=== PATIENT | female | born 1965 | race Caucasian/White ===

== ENCOUNTER → 2018-04-17 | Outpatient (CLI) | payer OTHER | END | disposition home or self-care (01) | LOC: MAMMO 15:25 | DX: Z12.31 Encounter for screening mammogram for malignant neoplasm of breast (principal) | CPT/HCPCS: 77063; 77067 ==

== ENCOUNTER → 2018-12-11 | Outpatient (CLI) | payer OTHER ==
--- NOTE | 2018-12-11 17:30 | RAD ---
2 view study of the cervical spine Clinical indications: Neck pain. Status post fusion in 2010. COMPARISON: None available. FINDINGS: Anterior cervical fusion is seen at C3 and C4 and C5 with normal alignment and no anterolisthesis. No discitis or lytic process is evident. No acute fracture or prevertebral soft tissue swelling is evident. There is mild degenerative endplate spurring at C5-6 and C6-7. Dextroscoliosis of the cervical spine is seen. IMPRESSION: Anterior cervical fusion at C3- thru C5. Normal alignment. No acute osseous abnormality is evident. Electronically signed by: Herber Fung MD (12/11/2018 5:26 PM) [facility]
== END | disposition home or self-care (01) ==
LOC: RAD 15:19
PROVIDERS: ATTEND Neurological Surgery
DX: M41.82 Other forms of scoliosis, cervical region (principal); Z98.890 Other specified postprocedural states
CPT/HCPCS: 72040

== ENCOUNTER 2019-02-10 15:47 | Emergency (ER) | payer OTHER ==
[~2019-02-10] VITALS: Ht 154.9 cm; Wt 71.2 kg
--- NOTE | 2019-02-10 16:29 | PHYS DOC ---
Past Medical History Past Medical History: Pneumonia Past Surgical History: Hysterectomy, Other Additional Past Surgical Histo: ACDF SURG,HERNIA Alcohol Use: None Drug Use: None Adult General Chief Complaint Chief Complaint: Congestion HPI HPI Patient is a 53 year old female who presents to the ED today to be evaluated for cough, patient states she was diagnosed with influenza A on Saturday last week at urgent care. She states she has been coughing since then, she states she went back yesterday and was reevaluated. She states they could not find any acute cause for her cough other than the influenza. She presents today stating she is still coughing she states she is about to go on vacation to [place] on Saturday this week and would like to make sure she is well. Patient denies any fever. Review of Systems Review of Systems Constitutional: Denies fever or chills [] Eyes: Denies change in visual acuity, redness, or eye pain [] HENT: Denies nasal congestion or sore throat [] Respiratory: reports cough denies shortness of breath [] Cardiovascular: No additional information not addressed in HPI [] GI: Denies abdominal pain, nausea, vomiting, bloody stools or diarrhea [] : Denies dysuria or hematuria [] Musculoskeletal: Denies back pain or joint pain [] Integument: Denies rash or skin lesions [] Neurologic: Denies headache, focal weakness or sensory changes [] All other systems were reviewed and found to be within normal limits, except as documented in this note. Allergies Allergies Allergies Coded Allergies Type Severity Reaction Last Updated Verified No Known Drug Allergies 02/10/19 No Physical Exam Physical Exam Constitutional: Well developed, well nourished, no acute distress, non-toxic appearance. [] HENT: Normocephalic, atraumatic, bilateral external ears normal, oropharynx moist, no oral exudates, nose normal. [] Eyes: PERRLA, EOMI, conjunctiva normal, no discharge. [] Neck: Normal range of motion, no tenderness, supple, no stridor. [] Cardiovascular:Heart rate regular rhythm, no murmur [] Lungs & Thorax: Bilateral breath sounds clear to auscultation [] Abdomen: Bowel sounds normal, soft, no tenderness, no masses, no pulsatile masses. [] Skin: Warm, dry, no erythema, no rash. [] Back: No tenderness, no CVA tenderness. [] Extremities: No tenderness, no cyanosis, no clubbing, ROM intact, no edema. [] Neurologic: Alert and oriented X 3, normal motor function, normal sensory function, no focal deficits noted. [] Psychologic: Affect normal, judgement normal, mood normal. [] Current Patient Data Vital Signs Vital Signs Date Time Temp Pulse Resp B/P (MAP) Pulse Ox O2 Delivery O2 Flow Rate FiO2 02/10/19 15:50 98.3 102 20 136/88 (104) 98 Room Air 98.3 EKG EKG [] Radiology/Procedures Radiology/Procedures [] Course & Med Decision Making Course & Med Decision Making Pertinent Labs and Imaging studies reviewed. (See chart for details) This is a 53-year-old female patient presenting to the ED today to be evaluated for cough, she was diagnosed with influenza A on Saturday. Chest x-ray is negative for any acute findings E read patient was discharged to home. Follow- up with PCP in 1-2 weeks. Dragon Disclaimer Dragon Disclaimer This electronic medical record was generated, in whole or in part, using a voice recognition dictation system. Departure Departure Impression: Primary Impression: Cough Disposition: HOME, SELF-CARE Condition: STABLE Referrals: JEREMIAH RAMIREZ MD (PCP) follow up in one week Patient Instructions: Cough, Adult, [id number] Additional Instructions: You were evaluated in the emergency room your chest x-ray is negative for pneumonia. You can take [id number] cough and cold medications as needed. Follow-up with your doctor in 1-2 weeks. SUHA STEPHEN APRN Feb 10, 2019 16:29
--- NOTE | 2019-02-10 16:53 | RAD ---
PROCEDURE: CHEST PA LATERAL CLINICAL INDICATION: ER PATIENT. NON PRODUCTIVE COUGH, CONGESTION, ATRAUMATIC UPPER CHEST PAIN. Hx RECENT PNEUMONIA. PRIOR XRAY. COMPARISON: None FINDINGS: No pneumothorax identified. Cardiac and mediastinal contours unremarkable. No pulmonary consolidation or acute airspace disease. No acute osseous abnormalities identified. IMPRESSION: No pulmonary consolidation or acute airspace disease. Electronically signed by: Howie Cabrera DO (02/10/2019 4:50 PM) [facility]
[2019-02-10 17:13] VITALS: BP 120/78
[2019-04-06] MEDS ORDERED: cbd oil (14:48)
== END 2019-02-10 17:13 | disposition home or self-care (01) ==
LOC: ER 15:47
DX: R05 Cough (principal); R09.81 Nasal congestion; Z90.710 Acquired absence of both cervix and uterus
CPT/HCPCS: 71046; 99283; 99284-25

== ENCOUNTER → 2019-03-09 | Outpatient (CLI) | payer OTHER ==
[2019-02-10 17:13] VITALS: BP 120/78
[~2019-03-09] MED LIST: cbd oil
--- NOTE | 2019-03-09 16:28 | RAD ---
MRI Cervical Spine Without Contrast History: Left cervical radiculopathy, previous cervical fusion, uncontrolled tremors Technique: Multiplanar, multi sequential noncontrast MR imaging was performed of the cervical spine. Comparison: Cervical spine radiographs December 11, 2018 Findings: There is motion degradation, limits accurate characterization of the neural foramina especially on the axial images. As seen previously, there has been anterior cervical fusion C3, C4, C5. There are interbody grafts C3-4 and C4-5 although interbody fusion not apparent. Cervical vertebral body stature is overall maintained. There is likely mild degenerative disc disease C5-6, mild C5-6 endplate edema likely reactive/degenerative in etiology. There is also mild degenerative disc disease C6-C7. There is moderate to severe dextroscoliosis of the cervical spine. C2-C3: There is severe left facet degenerative change. Spinal canal and right neural foramen are adequate, probable minimal narrowing of the left neural foramen. C3-C4: There is severe left facet degenerative change. There are minimal posterior osteophytes. Spinal canal is overall adequate. Right neural foramen is adequate. There is likely left uncovertebral degenerative change. There is likely [id number] narrowing of the left neural foramen. C4-C5: There is bilateral facet degenerative change. Central canal is adequate about 11 to 12 mm, mild indentation upon the ventral thecal sac in the far right lateral recess by osteophytes. Neural foramina are not significantly narrowed. C5-C6: There is posterior disc osteophyte complex. There is buckling of the ligamentum flavum. Probable narrowing of the central canal about 7 mm, poorly characterized due to motion. There is uncovertebral and facet degenerative change. Right neural foramen is likely adequate, likely moderate to severe narrowing of the left neural foramen. C6-C7: There is minimal disc osteophyte complex. Central canal is minimally narrowed to about 9 mm. There is facet degenerative change greater on the left. There is degree of uncovertebral degenerative change. Neural foramina are poorly characterized, likely fairly severe left and at least mild right neural foramina compromise. C7-T1: Spinal canal is adequate. There is probable uncovertebral degenerative change bilaterally. There is probable moderate to severe left and at least moderate right neural foramina compromise. Impression: 1. Exam is degraded by motion, limits accurate characterization of the neural foramina. 2. There has been anterior cervical fusion C3, C4, C5 although interbody fusion not apparent on this exam. 3. There is mild degenerative disc disease C5-6 and C6-7. 4. There is spinal stenosis about 7 mm at C5-6, lesser degree of mild spinal stenosis about 9 mm at C6-7. 5. Accurate evaluation of the neural foramina is limited as described, suspected neural foramina compromise due to facet and uncovertebral degenerative change most notable left greater than right at C7-T1, on the left at C6-7 and C5-6, to lesser degree on the left at C3-C4. 6. There is cervical dextroscoliosis. Electronically signed by: Tesfaye Sterling MD (03/09/2019 4:24 PM) [facility]
== END | disposition home or self-care (01) ==
LOC: MRI 15:05
PROVIDERS: ATTEND Neurological Surgery
DX: M50.123 Cervical disc disorder at C6-C7 level with radiculopathy (principal); M48.02 Spinal stenosis, cervical region; M47.22 Other spondylosis with radiculopathy, cervical region; M41.82 Other forms of scoliosis, cervical region; M47.814 Spondylosis without myelopathy or radiculopathy, thoracic region; M25.78 Osteophyte, vertebrae
CPT/HCPCS: 72141

== ENCOUNTER → 2019-04-06 | Outpatient (CLI) | payer OTHER ==
[~2019-04-06] MED LIST changes: +IOHEXOL 180 MG/ML 10 ML VIAL. ONE; +methylPREDNISolone ACETATE 40 MG/ML VIAL. ONE; +methylPREDNISolone ACETATE 80 MG/ML VIAL. ONE
--- NOTE | 2019-04-07 02:23 | PAIN ---
DATE OF SERVICE: 04/06/2019 INITIAL CONSULTATION FOR PAIN CLINIC CHIEF COMPLAINT: Neck and left upper extremity pain. HISTORY OF PRESENT ILLNESS: This is a 53-year-old female who presents with history of pain in the base of neck and left shoulder and arm about November of this year. The patient reports it returned, came on gradually, not a result of any specific injury or action that she is aware of, has been getting worse over time. She has had cervical diskectomy and fusion in 2010, which was successful and did very well with the pain, but over the past few months, the pain is returning, base of the neck, left shoulder, left arm, into the biceps and forearm at times, but mostly in the shoulder and the base of the neck. The patient reports it is becoming more constant, is aching and is radiating into the left arm with some numbness in the base of the neck as well. The patient reports no gross motor loss in the left extremity, but significant fatigability with using her left arm for any repetitive motion, lifting items, even driving the car, raising her hand above her head on the left side and any weightbearing on the left arm. The patient reports she is taking gabapentin as well as CBD oil, which she does feel both of these helped to a moderate extent, maybe 30-40%. The patient had not had any former recent physical therapy. She has had some in the past and doing some stretching and exercise on her own, but is not decreasing the pain significantly. The patient reports it awakens her from sleep very rarely, but do not affect her bowel or bladder control or ability to walk. The patient reports her disability rating from 0-10, 10 being the worst is a 0 with family and home responsibilities, 1 with recreation and occupational activities, 5 with social activity, 2 with sexual behavior, and 5 with life support activities. The patient did have MRI scan of the cervical spine showing postoperative changes, anterior fusion from C3-C5 and C5-C6 shows moderately severe narrowing of left neural foramen with neural foraminal narrowing on the left at C6-C7 and mild spinal stenosis at C5-C6. The patient reports no loss of function, but significant fatigability of the shoulder and the left upper extremity with any repetitive motion. PAST MEDICAL HISTORY: Significant for arthritis. PREVIOUS SURGERIES: Include hysterectomy in 2009, anterior cervical diskectomy and fusion in 2010 and hernia repair, inguinal on the left in 1998. CURRENT MEDICATIONS: Include just CBD oil. No prescription medications at this time. ALLERGIES: The patient has no known drug allergies. FAMILY HISTORY: Significant for hypertension and heart disease. SOCIAL HISTORY: The patient does not smoke, drinks alcohol about 2 drinks a week on average. Does not use any illegal, illicit or recreational drugs. She is single, lives locally in [place], [place] and works as the brewery technician. REVIEW OF SYSTEMS: The patient's review of systems is positive for those items mentioned in history of present illness. All systems reviewed and otherwise negative. It is complete, full and well documented on the patient's chart. PHYSICAL EXAMINATION: VITAL SIGNS: The patient's blood pressure is 117/80, pulse 69, respirations 18, temperature 98.0 degrees Fahrenheit, height is 5 feet 2 inches, weight is 157 pounds. GENERAL: The patient is awake, alert, oriented, appropriate, very pleasant demeanor. HEENT: Shows normocephalic, atraumatic. Extraocular movements are intact and symmetrical. Oral cavity: Mucous membranes moist and pink. Dentition is intact. NECK: Shows anterior throat supple without palpable lymphadenopathy noted. Swallow reflex symmetrical. CHEST: Shows normal on inspection. Breath sounds are clear to auscultation bilaterally. HEART: Shows S1, S2 clear. No murmurs auscultated. ABDOMEN: Soft, nontender, nondistended. No palpable organomegaly is noted. No rebound or guarding demonstrated. BACK: Shows spine grossly in the midline. Normal appearing thoracic kyphosis and lumbar lordotic curvature and cervical lordotic curvature is slightly flattened. Cervical paraspinous muscle shows symmetrical on inspection. On palpation shows some moderate tenderness diffusely, but only diffusely without significant radiation. The patient has good rotational motion of cervical spine, both laterally as well as extension and flexion without significant increase in pain. EXTREMITIES: The patient shows upper extremity deep tendon reflexes 2+ in the biceps and triceps tendons. Motor exam is strong with java lead engineer strength rated at 5/5. Bicep and tricep flexion approximately 4 on a scale of 5 on the left, with 5/5 on the right. Peripheral pulses are 2+ radial distribution. No peripheral edema is noted bilaterally. Shoulder shrug is strong and intact without loss of strength on resistance as is abduction of shoulder to 90 degrees, some minor pain on the left side, but only with resistance without loss of strength. SKIN: Shows warm and dry, good turgor. No edema. No sores, rashes or bruising throughout. IMPRESSION: This is a 53-year-old female with: 1. Approximate 4-month history of increasing pain, base of the neck, left shoulder, into the left upper extremity in a radicular fashion. 2. MRI scan of cervical spine as noted. 3. Arthritis. PLAN: Options were discussed with the patient including conservative medical management, physical therapy, interventional techniques. She likes to pursue interventional techniques. We discussed a cervical epidural steroid injection using description as well as anatomical models to describe the procedure. Risks were discussed including, but not limited to bleeding, infection, possibility of epidural hematoma, subsequent neurologic compromise, dural puncture, headaches, spinal cord and/or nerve damage, side effects of steroid medication and poor results regarding pain control. The patient understands and wished to proceed. The patient will return to the clinic in approximately 2 weeks for followup, was counseled on return appointment, activity level and side effects to be aware of. DIAGNOSES: Cervical radiculopathy with cervical degenerative disk disease and cervical post-laminectomy syndrome. PROCEDURE: Cervical epidural steroid injection, translaminar approach C7-T1 level using C-arm fluoroscopic guidance under sterile prep and drape using local anesthetic. MEDICATION INJECTED: A total of 120 mg Depo-Medrol plus 5 mL of preservative-free normal saline, 2 mL of Isovue for contrast. CONDITION AT DISCHARGE: Stable. The patient tolerated the procedure well, had no complications. JIMMY ARREDONDO MD DR: DAVID/ernesto JOB#: [id number] / [id number] JEREMIAH Almeida MD
== END | disposition home or self-care (01) ==
LOC: PNCL 14:10
PROVIDERS: ATTEND Anesthesiology
DX: M50.13 Cervical disc disorder with radiculopathy, cervicothoracic region (principal); M96.1 Postlaminectomy syndrome, not elsewhere classified; M19.90 Unspecified osteoarthritis, unspecified site; Z90.710 Acquired absence of both cervix and uterus; Z98.890 Other specified postprocedural states; Z98.1 Arthrodesis status; Z79.899 Other long term (current) drug therapy; Z72.89 Other problems related to lifestyle; Z82.49 Family history of ischemic heart disease and other diseases of the circulatory system
CPT/HCPCS: 62321; J1030; J1040; Q9965

== ENCOUNTER 2019-07-14 14:36 | Emergency (ER) | payer OTHER ==
[~2019-07-14] VITALS: Ht 154.9 cm; Wt 68.0 kg
[~2019-07-14 14:36] MED LIST changes: -IOHEXOL 180 MG/ML 10 ML VIAL. ONE; -methylPREDNISolone ACETATE 40 MG/ML VIAL. ONE; -methylPREDNISolone ACETATE 80 MG/ML VIAL. ONE
[2019-07-14] MEDS ORDERED: KETOROLAC 60 MG/2 ML VIAL. IM ONE (15:30)
--- NOTE | 2019-07-14 15:48 | RAD ---
PQRS Compliance statement: One or more of the following individualized dose reduction techniques were utilized for this examination: 1. Automated exposure control. 2. Adjustment of the mA and/or kV according to patient size. 3. Use of iterative reconstruction technique. Indication:Left groin pain. TECHNIQUE: CT abdomen and pelvis without IV contrast with multiplanar reformats. COMPARISON: None FINDINGS: Limited evaluation of solid abdominal and pelvic organs due to lack of IV contrast. Heart is normal in size. No pericardial or pleural effusion. Clear lung bases. Noncontrast appearance of the liver, spleen, gallbladder, pancreas, adrenals and kidneys within normal limits. No enlarged retroperitoneal or pelvic adenopathy. No free pelvic fluid or ascites. No bowel obstruction. Normal appendix. Urinary bladder demonstrates no radiopaque stones. Status post hysterectomy. No pneumoperitoneum. No suspicious bony lesion. Very small fat-containing right inguinal hernia. IMPRESSION: Limited evaluation of solid abdominal and pelvic organs due to lack of IV contrast. No acute findings. Very small fat-containing right inguinal hernia. Electronically signed by: Howie Cabrera DO (07/14/2019 3:45 PM) [facility]
[2019-07-14 16:12] LABS: BILIRUBIN,URINE NEGATIVE (NEG); CLARITY,URINE CLEAR; COLOR,URINE YELLOW; NITRITE,URINE NEGATIVE (NEG); PROTEIN,URINE NEGATIVE (NEG-TRACE); UROBILINOGEN,URINE 0.2 mg/dL (0.2 mg/dL)
[2019-07-14 16:29] LABS: BACTERIA,URINE FEW /HPF (0-FEW); RBC,URINE OCC /HPF (0-2); YEAST,URINE PRESENT /HPF
[2019-07-14] MEDS ORDERED: CYCL10TA2 PO (16:52)
[2019-07-14] MEDS ORDERED: TRAM-48 PO (16:52)
--- NOTE | 2019-07-14 16:52 | PHYS DOC ---
Past Medical History Past Medical History: Pneumonia Additional Past Medical Histor: CHRONIC NECK AND BACK PAIN Past Surgical History: Hysterectomy, Other Additional Past Surgical Histo: ACDF SURG,HERNIA Alcohol Use: None Drug Use: None Adult General Chief Complaint Chief Complaint: GROIN PAIN [facility] HPI Patient is a 54 year old female who presents with complaining of left groin pain. Patient states she had inguinal hernia surgery 1998 and complaining of left groin pain for the last 1 week as can be intermittent sharp pain without relation to activity. Patient denies back drinking groin area, abdominal pain, nausea and vomiting, fever and chills, urinary symptom. Patient states she did take ibuprofen with mild improvement of her pain. Patient also complaining of chronic neck and back pain since 2010 after had neck surgery. Review of Systems Review of Systems Constitutional: Denies fever or chills [] Eyes: Denies change in visual acuity, redness, or eye pain [] HENT: Denies nasal congestion or sore throat [] Respiratory: Denies cough or shortness of breath [] Cardiovascular: No additional information not addressed in HPI [] GI: Denies abdominal pain, nausea, vomiting, bloody stools or diarrhea [] : Denies dysuria or hematuria [] Musculoskeletal: Reports chronic neck pain Integument: Denies rash or skin lesions [] Neurologic: Denies headache, focal weakness or sensory changes [] Endocrine: Denies polyuria or polydipsia [] All other systems were reviewed and found to be within normal limits, except as documented in this note. Current Medications Current Medications Current Medications Medications (Trade) Dose Ordered Sig/Shauna Start Time Stop Time Status Last Admin Dose Admin Ketorolac Tromethamine (Toradol Im) 60 mg 1X ONCE 07/14/19 15:30 07/14/19 15:31 DC 07/14/19 15:30 60 MG Allergies Allergies Allergies Coded Allergies Type Severity Reaction Last Updated Verified No Known Drug Allergies 02/10/19 No Physical Exam Physical Exam Constitutional: Well developed, well nourished, mild distress, non-toxic appearance. [] HENT: Normocephalic, atraumatic. Eyes: PERRLA, EOMI, conjunctiva normal, no discharge. [] Neck: Normal range of motion, no tenderness, supple, no stridor. [] Cardiovascular:Heart rate regular rhythm, no murmur [] Lungs & Thorax: Bilateral breath sounds clear to auscultation [] Abdomen: Bowel sounds normal, soft, no tenderness, no masses, no pulsatile masses. [No inguinal hernia in the left side. Skin: Warm, dry, no erythema, no rash. [] Back: No tenderness, no CVA tenderness. [] Extremities: No tenderness, no cyanosis, no clubbing, ROM intact, no edema. [] Neurologic: Alert and oriented X 3, no focal deficits noted. [] Psychologic: Affect normal, judgement normal, mood normal. [] Current Patient Data Vital Signs Vital Signs Date Time Temp Pulse Resp B/P (MAP) Pulse Ox O2 Delivery O2 Flow Rate FiO2 07/14/19 17:05 66 16 156/81 (106) 98 Room Air 07/14/19 14:56 98.2 98.2 Lab Values Laboratory Tests Test 07/14/19 15:11 Urine Color Yellow Urine Clarity Clear Urine pH 6.0 Urine Specific [place] <=1.005 Urine Protein Negative mg/dL (NEG-TRACE) Urine Glucose (UA) Negative mg/dL (NEG) Urine Ketones (Stick) Negative mg/dL (NEG) Urine Blood Negative (NEG) Urine Nitrite Negative (NEG) Urine Bilirubin Negative (NEG) Urine Urobilinogen Dipstick 0.2 mg/dL (0.2 mg/dL) Urine Leukocyte Esterase Moderate (NEG) Urine RBC Occ /HPF (0-2) Urine WBC 1-4 /HPF (0-4) Urine Squamous Epithelial Cells None /LPF Urine Bacteria Few /HPF (0-FEW) Urine Yeast Present /HPF EKG EKG [] Radiology/Procedures Radiology/Procedures [][facility] [address] [place], [place] [id number] IMAGING REPORT Signed PATIENT: MARC RANGEL ACCOUNT: [id number] : 1965 LOCATION: ER AGE: 54 SEX: F EXAM STATUS: REG ER ORD. PHYSICIAN: ARIK SNOWDEN MD REASON: left groin pain, history of inguinal hernia repair in 1998 PROCEDURE: CT ABDOMEN PELVIS WO CONTRAST PQRS Compliance statement: One or more of the following individualized dose reduction techniques were utilized for this examination: 1. Automated exposure control. 2. Adjustment of the mA and/or kV according to patient size. 3. Use of iterative reconstruction technique. Indication:Left groin pain. TECHNIQUE: CT abdomen and pelvis without IV contrast with multiplanar reformats. COMPARISON: None FINDINGS: Limited evaluation of solid abdominal and pelvic organs due to lack of IV contrast. Heart is normal in size. No pericardial or pleural effusion. Clear lung bases. Noncontrast appearance of the liver, spleen, gallbladder, pancreas, adrenals and kidneys within normal limits. No enlarged retroperitoneal or pelvic adenopathy. No free pelvic fluid or ascites. No bowel obstruction. Normal appendix. Urinary bladder demonstrates no radiopaque stones. Status post hysterectomy. No pneumoperitoneum. No suspicious bony lesion. Very small fat-containing right inguinal hernia. IMPRESSION: Limited evaluation of solid abdominal and pelvic organs due to lack of IV contrast. No acute findings. Very small fat-containing right inguinal hernia. Electronically signed by: Howie Cabrera DO (07/14/2019 3:45 PM) [facility] DICTATED and SIGNED BY: HOWIE CABRERA DO DATE: 07/14/19 1545 Course & Med Decision Making Course & Med Decision Making Pertinent Labs and Imaging studies reviewed. (See chart for details) Evaluation of patient in ER showed 64-year-old female patient with complaining of left groin pain and history of left inguinal hernia surgery in 1998. Patient had unremarkable physical exam. CT abdomen and pelvis showed no sign of inguinal denies left-sided but she was accidentally his right side the small inguinal hernia with fat content. I've spoken with the patient and/or caregivers. I've explained the patient's condition, diagnosis and treatment plan based on information available to me at this time. I've answered the patient's and/or caregivers questions and addressed any concerns. The patient and/or caregivers have a good understanding the patient's diagnosis, condition and treatment plan as can be expected at this po int. Vital signs have been stabilized. The patient's condition is stable for discharge from the emergency department. The patient will pursue further outpatient evaluation with her primary care provider or other designated consulting physician as outlined in the discharge instructions. Patient and/or caregivers are agreeable to this plan of care and follow-up instructions have been explained in detail. The patient and/or caregivers have received these instructions in written format and expressed understanding of these discharge instructions. The patient and her caregivers are aware that if any significant change in condition or worsening of symptoms should prompt him to immediately return to this of the closest emergency department. If an emergent department is not readily available I would encourage him to call 911. Ethan Disclaimer Ethan Disclaimer This electronic medical record was generated, in whole or in part, using a voice recognition dictation system. Departure Departure Impression: Primary Impression: Left groin pain Additional Impressions: Inguinal hernia, right Yeast cystitis Chronic neck pain Disposition: HOME, SELF-CARE (at 1649) Condition: IMPROVED Referrals: JEREMIAH RAMIREZ MD (PCP) Patient Instructions: Sarah Infection, Adult, Chronic Pain Management, Inguinal Hernia, Adult Additional Instructions: Drink plenty of liquids Follow-up with your primary care physician in 3-5 days Return to ER if not getting better Scripts Fluconazole (DIFLUCAN) 100 Mg Tablet 100 MG PO DAILY, #5 TAB Prov: ARIK SNOWDEN MD 07/14/19 Tramadol Hcl (ULTRAM) 50 Mg Tablet 50 MG PO Q6HRS PRN for PAIN, #20 TAB 0 Refills Prov: ARIK SNOWDEN MD 07/14/19 Cyclobenzaprine Hcl (CYCLOBENZAPRINE HCL) 10 Mg Tablet 1 TAB PO TID, #21 TAB Prov: ARIK SNOWDEN MD 07/14/19 Problem Qualifiers ARIK SNOWDEN MD Jul 14, 2019 16:52
[2019-07-14] MEDS ORDERED: FLUC100T7 PO (17:01)
[2019-07-14 17:05] VITALS: BP 156/81
== END 2019-07-14 17:13 | disposition home or self-care (01) ==
LOC: ER 14:36
DX: B37.41 Candidal cystitis and urethritis (principal); G89.29 Other chronic pain; M54.2 Cervicalgia; K40.90 Unilateral inguinal hernia, without obstruction or gangrene, not specified as recurrent; Z90.710 Acquired absence of both cervix and uterus
CPT/HCPCS: 74176; 81001; 87086; 96372; 99285; J1885

== ENCOUNTER → 2020-09-02 | Outpatient (CLI) | payer OTHER ==
[~2020-09-02] MED LIST changes: +CYCL10TA2 PO; +FLUC100T7 PO; +TRAM-48 PO
== END ==
LOC: SPEC 10:13
DX: Z01.419 Encounter for gynecological examination (general) (routine) without abnormal findings (principal)
CPT/HCPCS: 87480; 87510; 87660

== ENCOUNTER → 2020-09-29 | Outpatient (CLI) | payer OTHER ==
[2020-09-29 09:22] LABS: BASO # 0.1 x10^3/uL (0.0-0.2); BASO % 1 % (0-3); EOS # 0.1 x10^3/uL (0.0-0.7); EOS % 3 % (0-3); HEMATOCRIT 38.9 % (36.0-47.0); LYMPH # 1.1 x10^3/uL (1.0-4.8); LYMPH % 22 % (24-48); MEAN CORPUSCULAR HEMOGLOBIN 28 pg (25-35); MEAN CORPUSCULAR HGB CONC 34 g/dL (31-37); MEAN CORPUSCULAR VOLUME 83 fL (79-100); MONO # 0.5 x10^3/uL (0.0-1.1); MONO % 11 % (0-9); NEUT # 3.2 x10^3/uL (1.8-7.7); NEUT % 64 % (31-73); PLATELET COUNT 320 x10^3/uL (140-400); RED BLOOD COUNT 4.66 x10^6/uL (3.50-5.40); RED CELL DISTRIBUTION WIDTH 13.6 % (11.5-14.5)
[2020-09-29 09:30] LABS: ALBUMIN 3.7 g/dL (3.4-5.0); ALBUMIN/GLOBULIN RATIO 1.2 (1.0-1.7); CALCIUM 9.1 mg/dL (8.5-10.1); CREATININE 0.7 mg/dL (0.6-1.0); GFR 86.9; POTASSIUM 4.1 mmol/L (3.5-5.1); TOTAL BILIRUBIN 0.6 mg/dL (0.2-1.0); TOTAL PROTEIN 6.9 g/dL (6.4-8.2)
[2020-09-29 09:37] LABS: BILIRUBIN,URINE NEGATIVE (NEG); CLARITY,URINE CLEAR; COLOR,URINE YELLOW; NITRITE,URINE NEGATIVE (NEG); PH,URINE 7.5 (<5.0-8.0); PROTEIN,URINE NEGATIVE (NEG-TRACE); UROBILINOGEN,URINE 0.2 mg/dL (0.2 mg/dL)
[2020-09-29 09:44] LABS: FREE T4 1.11 ng/dL (0.76-1.46); THYROID STIM HORMONE (TSH) 0.611 uIU/mL (0.358-3.74)
[2020-09-29 09:46] LABS: CHOLESTEROL/HDL RATIO 2.6
[2020-09-29 10:03] LABS: BACTERIA,URINE 0 /HPF (0-FEW); RBC,URINE 0 /HPF (0-2); WBC,URINE 0 /HPF (0-4)
== END ==
LOC: LAB 08:25
PROVIDERS: ATTEND Physician Assistant
DX: N95.2 Postmenopausal atrophic vaginitis (principal); N76.0 Acute vaginitis
CPT/HCPCS: 36415; 80053; 80061; 81001; 84439; 84443; 85025

== ENCOUNTER → 2020-12-09 | Day surgery (SDC) | payer OTHER ==
[~2020-12-09] MED LIST changes: +GLYCOPYRROLATE 1 MG/5 ML SYRINGE. ONE; +IV RINGERS,LACTATED 1000ML 1,000 ML IV SCH; +PROPOFOL 10 MG/ML (20ML) VIAL. IV ONE
[2020-12-09 09:53] VITALS: BP 118/72
== END | disposition home or self-care (01) ==
LOC: ENDOS 08:20
PROVIDERS: ATTEND Internal Medicine Gastroenterology
DX: Z12.11 Encounter for screening for malignant neoplasm of colon (principal); K64.0 First degree hemorrhoids; K63.89 Other specified diseases of intestine; K21.9 Gastro-esophageal reflux disease without esophagitis; M19.90 Unspecified osteoarthritis, unspecified site; Z79.899 Other long term (current) drug therapy; Z90.710 Acquired absence of both cervix and uterus; Z98.890 Other specified postprocedural states
CPT/HCPCS: 45378; 87426; C9803; J2704; J3490; U0003

== ENCOUNTER → 2021-12-19 | Outpatient (CLI) | payer OTHER ==
[2020-12-09 09:53] VITALS: BP 118/72
[~2021-12-19] MED LIST changes: +CYCL10TA19 PO; -CYCL10TA2 PO; -GLYCOPYRROLATE 1 MG/5 ML SYRINGE. ONE; -IV RINGERS,LACTATED 1000ML 1,000 ML IV SCH; -PROPOFOL 10 MG/ML (20ML) VIAL. IV ONE
--- NOTE | 2021-12-19 16:07 | RAD ---
EXAM: Cervical spine, 3 views. HISTORY: Pain. COMPARISON: 03/09/2019 FINDINGS: 3 views of the cervical spine are obtained. There is instrumented anterior spinal fusion an d interbody fusion at C3-C5. There is multilevel endplate remodeling. There is a chronic mild ananya osei deformity of C7. There is multilevel facet arthropathy. IMPRESSION: 1. Instrumented fusion at C3-C5. 2. Multilevel degenerative change. 3. Chronic mild compression deformity at C7. Electronically signed by: Greta Osei MD (12/19/2021 4:04 PM) [id number]
== END ==
LOC: RAD 15:13
PROVIDERS: ATTEND Family Medicine
DX: M47.812 Spondylosis without myelopathy or radiculopathy, cervical region (principal); M48.8X2 Other specified spondylopathies, cervical region; M43.8X2 Other specified deforming dorsopathies, cervical region; Z98.1 Arthrodesis status
CPT/HCPCS: 72040

== ENCOUNTER → 2021-12-21 | Outpatient (CLI) | payer OTHER ==
[2020-12-09 09:53] VITALS: BP 118/72
--- NOTE | 2021-12-21 16:52 | KCIC ---
MRI of the cervical spine without contrast 12/21/2021 CLINICAL HISTORY: Worsening neck pain. TECHNIQUE: Unenhanced T1-weighted, T2-weighted and inversion recovery sagittal and gradient echo and T2-weighted axial images of the cervical spine were obtained. FINDINGS: Comparison is made to radiographs of the cervical spine dated 12/11/2018. Additional compari son is made to a MRI of the cervical spine dated 03/09/2019. Some images from the study are degraded by patient motion. Mild to moderate lateral curvature of the cervical spine is seen convex to the right. There is straig htening of the normal cervical lordosis. The patient is post anterior discectomy and fusion using an anterior plate, bone screws and bone graft material at C3-4 and C4-5. Degenerative signal changes are seen involving the remaining discs of the cervical spine. Degenerative signal changes are seen withi n the marrow surrounding these discs. No area of abnormal signal intensity is seen involving the cerv ical spinal cord. At the C2-3 disc space there is a minimal generalized disc bulge. Degenerative changes are seen invol ving the uncovertebral and facet joints, right greater than left. These findings do not result in sig nificant central spinal canal or neural foraminal stenosis. At the C3-4 disc space there is a mild generalized disc bulge. Degenerative changes are seen involvin g the uncovertebral and facet joints, left greater than right. These findings when combined do not re sult in significant central spinal canal stenosis. Mild left neural foraminal stenosis is seen. The r ight neural foramen is patent. At the C4-5 disc space there is a minimal generalized disc bulge. Degenerative changes are seen invol ving the uncovertebral and facet joints bilaterally. These findings do not result in significant cent ral spinal canal or neural foraminal stenosis. At the C5-6 disc space there is a moderate generalized disc bulge. Degenerative changes are seen invo lving the uncovertebral and facet joints, left greater than right. These findings efface the anterior posterior CSF resulting in mild to moderate central spinal canal stenosis with mild cord impingement . Mild right neural foraminal stenosis is seen. Moderate to severe left neural foraminal stenosis is noted. At the C6-7 disc space there is a mild to moderate generalized disc bulge. Degenerative changes are s een involving the uncovertebral and facet joints, left greater than right. These findings when combin ed do not result in significant central spinal canal stenosis. Mild bilateral neural foraminal stenos is is seen. The C7-T1 disc space there is a mild generalized disc bulge. Degenerative changes are seen involving the facet joints bilaterally. These findings do not result in significant central spinal canal stenos is. Mild bilateral neural foraminal stenosis is seen. IMPRESSION: 1. Post anterior discectomy and fusion at C3-4 and C4-5. 2. Degenerative changes are seen throughout the cervical spine. These findings result in mild to mode rate central spinal canal stenosis with mild cord impingement at C5-6. Mild left neural foraminal fito nosis is seen at C3-4. Mild right neural foraminal stenosis is seen at C5-6. Moderate to severe left neural foraminal stenosis is seen at C5-6. Mild bilateral neural foraminal stenosis is seen at C6-7 a nd C7-T1. Electronically signed by: Nehemias Reynolds MD (12/21/2021 4:49 PM) [id number]
== END ==
LOC: KCIC MRI 15:08
PROVIDERS: ATTEND Family Medicine
DX: M47.812 Spondylosis without myelopathy or radiculopathy, cervical region (principal); M48.02 Spinal stenosis, cervical region; M50.31 Other cervical disc degeneration, high cervical region; Z98.890 Other specified postprocedural states
CPT/HCPCS: 72141

== ENCOUNTER → 2022-02-28 | Outpatient (CLI) | payer OTHER ==
[2020-12-09 09:53] VITALS: BP 118/72
--- NOTE | 2022-03-01 11:52 | RAD ---
EXAMINATION: XR RIBS 2 VIEWS LT CLINICAL HISTORY: ANTERIOR CHEST WALL INJURY, PAIN UNDER LEFT BREAST . TECHNIQUE: XR RIBS 2 VIEWS LT COMPARISON: None FINDINGS/ IMPRESSION: No evidence of acute left rib fracture. No evidence of left-sided pneumothorax or pleural effusion. T horacolumbar degenerative changes. Electronically signed by: Abdelrahman Ariza DO (03/01/2022 11:50 AM) [id number]
== END ==
LOC: RAD 14:41
PROVIDERS: ATTEND Family Medicine
DX: S29.9XXA Unspecified injury of thorax, initial encounter (principal); N64.4 Mastodynia; M47.815 Spondylosis without myelopathy or radiculopathy, thoracolumbar region; X58.XXXA Exposure to other specified factors, initial encounter; Y93.89 Activity, other specified; Y92.89 Other specified places as the place of occurrence of the external cause; Y99.8 Other external cause status
CPT/HCPCS: 71100